=== PATIENT | male | born 1970 | race Caucasian/White ===

== ENCOUNTER 2018-04-26 20:42 | Emergency (ER) | payer BC, OTHER ==
[~2018-04-26] VITALS: Ht 180.3 cm; Wt 95.3 kg
[2018-04-26] MEDS ORDERED: NAPROSYN500 MG PO (22:56)
[2018-04-26] MEDS ORDERED: NORFLEX100 MG PO (22:56)
== END 2018-04-26 23:25 | disposition home or self-care (01) ==
LOC: ER 20:42
DX: S39.012A Strain of muscle, fascia and tendon of lower back, initial encounter (principal); S16.1XXA Strain of muscle, fascia and tendon at neck level, initial encounter; S29.012A Strain of muscle and tendon of back wall of thorax, initial encounter; M54.16 Radiculopathy, lumbar region; M54.41 Lumbago with sciatica, right side; R11.0 Nausea; H92.09 Otalgia, unspecified ear; V89.2XXA Person injured in unspecified motor-vehicle accident, traffic, initial encounter; Y93.89 Activity, other specified; Y92.410 Unspecified street and highway as the place of occurrence of the external cause; Y99.8 Other external cause status

== ENCOUNTER 2018-05-07 17:42 | Emergency (ER) | payer BC, OTHER ==
[~2018-05-07] VITALS: Ht 180.3 cm; Wt 96.2 kg
--- NOTE | ~2018-05-07 | EKG ---
[place] [address] [facility] [employer] [place] [address] ELECTROCARDIOGRAM REPORT Name: INGRIS DALE Room #: DEP VIJAYA Ahuja#: [id number] Admission: 05/07/18 Attend Phys: Discharge: 05/07/18 Date of : 66 Report #: [id number] THIS REPORT FOR: //name// [facility] ED Test Date: 2018-05-07 Test Time: 17:52:40 Pat Name: INGRIS DALE Department: Room: Gender: Software Engineer [employer]: Arielle SIMPSON : 1970 Requested By: Nadine Akins Order Number: [id number] MD: Bernard Field Measurements Intervals [place] Rate: 100 P: 46 NM: 168 QRS: 29 QRSD: 92 T: 32 QT: 334 QTc: 431 Interpretive Statements Sinus tachycardia Otherwise no significant abnormality No previous ECG available for comparison Electronically Signed On 05-08-2018 7:56:04 [employer] by Bernard Field [email or web address] <ELECTRONICALLY SIGNED> By: Bernard Field MD, [facility] 05/08/18 [id number] Bernard Field MD, FACC /EPI
[~2018-05-07 17:42] MED LIST: NAPROSYN500 MG PO; NORFLEX100 MG PO
[2018-05-07 18:21] LABS: ABSOLUTE NEUTROPHILS 8.7 thou/uL (1.4-8.2); BASOPHILS 0.2 % (0.0-2.0); HEMATOCRIT 47.2 % (42.0-52.0); HEMOGLOBIN 16.5 gm/dL (14.0-18.0); MCH 29.4 pg (26.0-34.0); MONOCYTES 2.3 % (1.0-8.0); PLATELET COUNT 266 thou/uL (150-400); POLYS 88.5 % (36.0-66.0); RBC 5.61 mil/uL (4.50-6.00); RDW 12.8 % (10.5-14.5); WBC 9.8 thou/uL (4.0-11.0)
[2018-05-07] MEDS ORDERED: PREDNISONE 10 M10 MG PO (18:22)
[2018-05-07] MEDS ORDERED: NORCO 5-325 TA1 EACH PO (18:22)
[2018-05-07] MEDS ORDERED: FLEXERIL PO (18:22)
[2018-05-07 18:26] LABS: ANION GAP 13 mmol/L (7-16); BUN 17 mg/dL (7-18); CALCIUM 9.7 mg/dL (8.5-10.1); CHLORIDE 102 mmol/L (98-107); CO2 22 mmol/L (21-32); CREATININE 1.3 mg/dL (0.7-1.3); GLUCOSE 224 mg/dL (74-106); POTASSIUM 4.3 mmol/L (3.5-5.1); SODIUM 137 mmol/L (136-145)
[2018-05-07 18:30] LABS: SGOT 12 U/L (15-37); SGPT 27 U/L (30-65); TOTAL BILIRUBIN 0.3 mg/dL (<0.1-1.0); TOTAL PROTEIN 8.3 g/dL (6.4-8.2); TROPONIN-I <0.06 ng/mL (<0.06)
[2018-05-07 19:22] VITALS: BP 139/80
== END 2018-05-07 19:42 | disposition home or self-care (01) ==
LOC: ER 17:42
PROVIDERS: Physician Assistant
DX: R07.89 Other chest pain (principal); E78.00 Pure hypercholesterolemia, unspecified